=== PATIENT | male | born 1980 | race African-American/Black ===

== ENCOUNTER 2023-04-08 17:40 | Emergency (ER) | payer SELFPAY | END 2023-04-08 19:31 | disposition home or self-care (01) | LOC: ERS 17:40 | DX: M54.50 Low back pain, unspecified (principal); B34.9 Viral infection, unspecified; I10 Essential (primary) hypertension; F17.210 Nicotine dependence, cigarettes, uncomplicated; Z79.899 Other long term (current) drug therapy | CPT/HCPCS: 71045 ==